=== PATIENT | female | born 1960 | race African-American/Black ===

== ENCOUNTER 2017-09-26 16:52 | Emergency (ER) | payer BC ==
[~2017-09-26] VITALS: Ht 167.6 cm; Wt 106.4 kg
[~2017-09-26 16:52] MED LIST: ADVAIR; ALBUTEROL; BENTYL20 MG PO; CARAFATE1 GM PO; FLONASE16 G1 BOTH NARES; LEVEMIR FL100 UNITS/ SC; LOPRESSOR25 MG PO; METOPROLOL TART25 MG PO; NAPROSYN500 MG PO; NAPROXEN500 MG PO; NICOTINE PATCH1 EAC2 TD; NOHOMEMEDS; NORCO 5/3251 TABLET PO; NOVOLOG PE100 UNITS/ SC; PRAVACHOL20 MG PO; PREDNISONE20 MG PO; PROVENTIL,2.5 MG/3 M IH; SERTRALINE HCL50 MG PO; SKELAXIN400 M1 PO; ULTRAM50 MG PO; VALIUM2 MG PO; VENTOLIN HFA18 GM IH; ZANTAC150 MG PO; ZESTORETIC 20-1 EAC1 NG; ZOFRAN4 MG PO
[2017-09-26] MEDS ORDERED: XYLOCAINE VISC100 ML PO (19:50)
[2017-09-26] MEDS ORDERED: TETCAINE15 ML LEFT EAR (19:50)
[2017-09-26 20:18] VITALS: BP 178/92
== END 2017-09-26 20:20 | disposition home or self-care (01) ==
LOC: EME 16:52
DX: J02.9 Acute pharyngitis, unspecified (principal); I10 Essential (primary) hypertension; Z88.2 Allergy status to sulfonamides
CPT/HCPCS: 87651 90; 99281; 99284

== ENCOUNTER 2017-12-12 19:21 | Emergency (ER) | payer SELFPAY ==
[~2017-12-12] VITALS: Ht 167.6 cm; Wt 108.6 kg
[~2017-12-12 19:21] MED LIST changes: +TETCAINE15 ML LEFT EAR; +XYLOCAINE VISC100 ML PO
[2017-12-12 20:49] LABS: HEMATOCRIT 47.3 % (36.0-46.0); HEMOGLOBIN 16.7 G/DL (11.9-15.5); MCH 32.1 PG (29.0-34.0); MCHC 35.3 G/DL (30.0-36.0); MCV 90.8 FL (83-99); RBC DIS.WIDTH-CV 12.3 % (11.8-14.6); RBC DIS.WIDTH-SD 40.3 % (39-53); RED BLOOD COUNT 5.21 M/uL (3.80-5.20); WHITE BLOOD COUNT 11.6 K/uL (4.1-10.2)
[2017-12-12 21:07] LABS: TROP-I INTERPRETATION NEGATIVE; TROPONIN-I < 0.01 ng/mL (0.0-0.30)
[2017-12-12 21:16] LABS: CHLORIDE 107 mEq/L (99-109); POTASSIUM 4.6 mEq/L (3.7-5.4); SODIUM 141 mEq/L (136-147)
[2017-12-12 21:18] LABS: GLUCOSE 86 mg/dL (70-99)
[2017-12-12 21:22] LABS: CREATININE 0.8 mg/dL (0.6-1.3); GFR ESTIMATE (CALCULATED) > 59 mL/min/
[2017-12-12 21:23] LABS: UREA NITROGEN (BUN) 11 mg/dL (9-23)
[2017-12-12 21:43] LABS: PLAT.SUFFICIENCY ADEQUATE; PLATELET COUNT 274 K/uL (156-360)
[2017-12-12 23:11] LABS: TROP-I INTERPRETATION NEGATIVE; TROPONIN-I < 0.01 ng/mL (0.0-0.30)
[2017-12-12 23:39] VITALS: BP 158/88
== END 2017-12-12 23:41 | disposition home or self-care (01) ==
LOC: EME 19:21
PROVIDERS: Emergency Medicine Emergency Medical Services
DX: R07.89 Other chest pain (principal); R06.02 Shortness of breath; I10 Essential (primary) hypertension; E11.9 Type 2 diabetes mellitus without complications; J45.909 Unspecified asthma, uncomplicated; K75.9 Inflammatory liver disease, unspecified; F32.9 Major depressive disorder, single episode, unspecified; F17.200 Nicotine dependence, unspecified, uncomplicated; Z90.49 Acquired absence of other specified parts of digestive tract; Z88.2 Allergy status to sulfonamides
CPT/HCPCS: 71045; 80048; 84484; 85027; 93005; 99281; 99285; J2270